=== PATIENT | female | born 1990 | race Two or more races ===

== ENCOUNTER 2018-12-11 18:41 | Inpatient (IN) | payer OTHER ==
[~2018-12-11] VITALS: Ht 180.3 cm; Wt 133.0 kg
[2018-12-11] MEDS ORDERED: PRENATAL TABLE1 EAC1 PO (18:44)
== END 2018-12-14 10:08 | DRG 833 ==
LOC: OBS/DEL 18:41 → LDR 12-12 08:25 → OB/GYN 12-12 08:25
PROVIDERS: ADMIT Obstetrics & Gynecology
PROC: 4A1HXCZ Monitoring of Products of Conception, Cardiac Rate, External Approach (ICD-10-PCS; principal; 2018-12-12)
DX: O46.8X2 Other antepartum hemorrhage, second trimester (principal); Z34.82 Encounter for supervision of other normal pregnancy, second trimester

== ENCOUNTER 2019-02-28 13:25 | Inpatient (IN) | payer OTHER ==
[~2019-02-28] VITALS: Ht 165.1 cm; Wt 64.0 kg
[~2019-02-28 13:25] MED LIST: PRENATAL TABLE1 EAC1 PO
[2019-03-04] MEDS ORDERED: NAPR500T14 PO (08:44)
== END 2019-03-04 12:42 | disposition home or self-care (01) | DRG 807 ==
LOC: LDR 13:25 → OB/GYN 13:25
PROVIDERS: ADMIT Obstetrics & Gynecology
PROC: 4A1HXCZ Monitoring of Products of Conception, Cardiac Rate, External Approach (ICD-10-PCS; 2019-02-28)
PROC: 10E0XZZ Delivery of Products of Conception, External Approach (ICD-10-PCS; principal; 2019-03-02)
PROC: 10907ZC Drainage of Amniotic Fluid, Therapeutic from Products of Conception, Via Natural or Artificial Opening (ICD-10-PCS; 2019-03-02)
PROC: 0W8NXZZ Division of Female Perineum, External Approach (ICD-10-PCS; 2019-03-02)
PROC: 3E033VJ Introduction of Other Hormone into Peripheral Vein, Percutaneous Approach (ICD-10-PCS; 2019-03-02)
DX: O80 Encounter for full-term uncomplicated delivery (principal); Z37.0 Single live birth; Z3A.38 38 weeks gestation of pregnancy